=== PATIENT | female | born 1980 | race Caucasian/White ===

== ENCOUNTER 2016-11-13 22:17 | Emergency (ER) | payer OTHER ==
[~2016-11-13] VITALS: Ht 177.8 cm; Wt 89.0 kg
[2016-11-13 22:19] VITALS: BP 139/86; PULSE 77; RESP 16; TEMP 98; O2SAT 98
[2016-11-13] MEDS ORDERED: SODIUM CHLOR 0.9% 1000 ML INJ 1,000 ML IV ONE (23:05)
[2016-11-13] MEDS ORDERED: SODIUM CHLORIDE 0.9% FLUSH 10 ML FLUSH IVF PRN (23:15)
[2016-11-13 23:27] VITALS: BP 140/85; PULSE 75; RESP 18; O2SAT 100
--- NOTE | 2016-11-13 23:32 | PD ---
HPI Chief Complaint: Syncope/Near-Syncope Time Seen by Provider: 00:06 Travel History International Travel<30 days: No Contact w/Intl Traveler<30days: No Traveled to known affect area: No History of Present Illness HPI Patient 36-year-old female presents emergency primary for evaluation of headache dizziness and feeling like she's been a pass out. Patient states his been going on for a long time but is been gradually getting worse over the past few days. She has been working up as an outpatient and her physicians have recommended that she have an MRI for in her urine imbalance as well as brain function. The patient states that she is not been able to afford the co-pay on this as of yet. Patient states that she feels as though the room is spinning more than she's feel like she could pass out. Denies any chest pain shortness of breath palpitations. She states she does have some mild numbness and tingling in her hands from time to time. She denies any focalized weakness or visual difficulties. PFSH Past Medical History Medical History: Denies Significant Hx Past Surgical History Surgical History: No Previous Surgery Family History Narrative Family History Noncontributory no history of multiple sclerosis. Social History Tobacco Use: No Allergies-Medications (Allergen,Severity, Reaction): Coded Allergies: Penicillin (Verified Adverse Reaction, Intermediate, 11/13/16) Reported Meds & Prescriptions Reported Meds & Active Scripts Active No Active Prescriptions or Reported Medications Review of Systems Except as stated in HPI: all other systems reviewed are Neg Physical Exam Narrative GENERAL: Well-developed well-nourished no apparent distress SKIN: Focused skin assessment warm/dry. HEAD: Atraumatic. Normocephalic. EYES: Pupils equal and round. No scleral icterus. No injection or drainage. No papilledema bilaterally. ENT: No nasal bleeding or discharge. Mucous membranes pink and moist. NECK: Trachea midline. No JVD. CARDIOVASCULAR: Regular rate and rhythm. No murmur appreciated. Thus bilateral equal pulses in all 4 extremity's. RESPIRATORY: No accessory muscle use. Clear to auscultation. Breath sounds equal bilaterally. GASTROINTESTINAL: Abdomen soft, non-tender, nondistended. Hepatic and splenic margins not palpable. MUSCULOSKELETAL: No obvious deformities. No clubbing. No cyanosis. No edema. NEUROLOGICAL: Awake and alert. Cranial nerves II through XII are grossly intact and nonfocal, 5 out of 5 strength in all 4 extremities, sensation grossly intact. Cerebellar testing negative, and relates that even narrow based gait. PSYCHIATRIC: Appropriate mood and affect; insight and judgment normal. Data Data Last Documented VS Vital Signs Date Time Temp Pulse Resp B/P Pulse Ox O2 Delivery O2 Flow Rate FiO2 11/14/16 00:23 80 17 145/90 99 Room Air 11/13/16 22:19 98.0 Orders Electrocardiogram (11/13/16 23:05) Basic Metabolic Panel (Bmp) (11/13/16 23:05) Ed Urine Pregnancytest Poc (11/13/16 23:05) Comprehensive Metabolic Panel (11/13/16 23:05) Urinalysis - C+S If Indicated (11/13/16 23:05) Ecg Monitoring (11/13/16 23:05) Iv Access Insert/Monitor (11/13/16 23:05) Oximetry (11/13/16 23:05) Sodium Chloride 0.9% Flush (Ns Flush) (11/13/16 23:15) Sodium Chlor 0.9% 1000 Ml Inj (Ns 1000 M (11/13/16 23:05) Complete Blood Count With Diff (11/14/16 00:00) Prochlorperazine Inj (Compazine Inj) (11/14/16 00:15) Diphenhydramine Inj (Benadryl Inj) (11/14/16 00:15) Labs Laboratory Tests Test 11/13/16 11/13/16 23:20 23:30 White Blood Count 8.6 TH/MM3 Red Blood Count 4.94 MIL/MM3 Hemoglobin 13.9 GM/DL Hematocrit 41.6 % Mean Corpuscular Volume 84.2 FL Mean Corpuscular Hemoglobin 28.2 PG Mean Corpuscular Hemoglobin 33.4 % Concent Red Cell Distribution Width 12.7 % Platelet Count 257 TH/MM3 Mean Platelet Volume 7.3 FL Neutrophils (%) (Auto) 54.3 % Lymphocytes (%) (Auto) 34.3 % Monocytes (%) (Auto) 7.3 % Eosinophils (%) (Auto) 3.8 % Basophils (%) (Auto) 0.3 % Neutrophils # (Auto) 4.7 TH/MM3 Lymphocytes # (Auto) 2.9 TH/MM3 Monocytes # (Auto) 0.6 TH/MM3 Eosinophils # (Auto) 0.3 TH/MM3 Basophils # (Auto) 0.0 TH/MM3 CBC Comment DIFF FINAL Differential Comment Sodium Level 140 MEQ/L Potassium Level 3.8 MEQ/L Chloride Level 106 MEQ/L Carbon Dioxide Level 28.0 MEQ/L Anion Gap 6 MEQ/L Blood Urea Nitrogen 10 MG/DL Creatinine 0.96 MG/DL Estimat Glomerular Filtration 65 ML/MIN Rate Random Glucose 73 MG/DL Calcium Level 9.0 MG/DL Total Bilirubin 0.2 MG/DL Aspartate Amino Transf 16 U/L (AST/SGOT) Alanine Aminotransferase 21 U/L (ALT/SGPT) Alkaline Phosphatase 72 U/L Total Protein 7.0 GM/DL Albumin 3.6 GM/DL Urine Color YELLOW Urine Turbidity CLEAR Urine pH 7.0 Urine Specific Sayre 1.016 Urine Protein NEG mg/dL Urine Glucose (UA) NEG mg/dL Urine Ketones NEG mg/dL Urine Occult Blood NEG Urine Nitrite NEG Urine Bilirubin NEG Urine Urobilinogen LESS THAN 2.0 MG/DL Urine Leukocyte Esterase NEG Urine RBC 1 /hpf Urine WBC LESS THAN 1 /hpf Urine Squamous Epithelial <1 /hpf Cells Urine Mucus FEW /lpf Microscopic Urinalysis Comment CULT NOT INDICATED MDM Medical Decision Making Medical Screen Exam Complete: Yes Emergency Medical Condition: Yes Interpretation(s) EKG shows normal sinus rhythm with normal axis normal R-wave progression. No concerning ST T changes. Intervals within normal limits. This normal EKG. Differential Diagnosis MS, vertigo, cardiogenic syncope unlikely, arrhythmia unlikely, headache, migraine, Narrative Course Patient was roomed in the emergency department, she appears well and in no apparent distress. She responded quite well to medications and stated that she would like to go home to follow-up with her primary care physician. Her initial workup including an EKG and a CBC showed no abnormalities and no anemia. The patient is nonfocal currently. She was encouraged to try to get her MRI done his MS does remain on the differential diagnosis. There is no indication for emergent imaging at this time. She is stable for discharge at this time. Diagnosis Primary Impression: Headache Qualified Code: R51 - Nonintractable headache, unspecified chronicity pattern , unspecified headache type Scripts No Active Prescriptions or Reported Meds Disposition: DISCHARGE HOME Condition: Stable Davion Jason MD Nov 13, 2016 23:32
[2016-11-14 00:01] LABS: BLOOD, URINE NEG (NEG); COMMENT (UR) CULT NOT INDICATED; CULTURE IF INDICATED CULT NOT INDICATED; GLUCOSE,URINE NEG (NEG); KETONE, URINE NEG (NEG); MUCUS URINE FEW /lpf (OCC); NITRITE,URINE NEG (NEG); SQUAMOUS EPITHELIAL CELL URINE <1 /hpf (0-5); URINE COLOR YELLOW (YELLW/STRAW)
[2016-11-14 00:03] LABS: ALT (GPT) 21 U/L (10-53); ANION GAP 6 MEQ/L (5-15); AST (GOT) 16 U/L (15-37); BLOOD UREA NITROGEN 10 MG/DL (7-18); CHLORIDE 106 MEQ/L (98-107); GLOMERULAR FILTRATION RATE 65 ML/MIN (>89); POTASSIUM 3.8 MEQ/L (3.5-5.1); SODIUM (NA) 140 MEQ/L (136-145)
[2016-11-14 00:06] LABS: ALKALINE PHOSPHATASE 72 U/L (45-117); TOTAL BILIRUBIN ADULT 0.2 MG/DL (0.2-1.0)
[2016-11-14] MEDS ORDERED: diphenhydrAMINE HCL 50 MG/ML VIAL IV PUSH ONE (00:15)
[2016-11-14] MEDS ORDERED: PROCHLORPERAZINE INJ 10 MG/2 ML VIAL IV PUSH ONE (00:15)
[2016-11-14 00:23] VITALS: BP 145/90; PULSE 80; RESP 17; O2SAT 99
[2016-11-14 00:33] LABS: AUTOMATED NEUTROPHIL # 4.7 TH/MM3 (1.8-7.7); BASOPHIL % 0.3 % (0.0-2.0); EOSINOPHIL # 0.3 TH/MM3 (0-0.4); EOSINOPHIL % 3.8 % (0.0-4.0); HEMATOCRIT 41.6 % (35.0-46.0); HEMO FLAGS DIFF FINAL; LYMPH % 34.3 % (9.0-44.0); LYMPHOCYTE # 2.9 TH/MM3 (1.0-4.8); MEAN CELL VOLUME 84.2 FL (80.0-100.0); MEAN CORPUSCULAR HEMOGLOBIN 28.2 PG (27.0-34.0); MEAN CORPUSCULAR HGB CONC 33.4 % (32.0-36.0); MONO % 7.3 % (0.0-8.0); NEUT % 54.3 % (16.0-70.0); PLATELET COUNT 257 TH/MM3 (150-450); RED BLOOD COUNT 4.94 MIL/MM3 (4.00-5.30); RED CELL DISTRIBUTION WIDTH 12.7 % (11.6-17.2); WHITE BLOOD COUNT 8.6 TH/MM3 (4.0-11.0)
--- NOTE | 2016-11-14 20:19 | EKG ---
Date Performed: 11/13/2016 Time Performed: 23:14:05 PTAGE: 36 years EKG: Sinus rhythm NORMAL ECG NO PREVIOUS TRACING DOCTOR: Luz Maria Daugherty Interpretating Date/Time 11/14/2016 20:18:24
== END 2016-11-14 01:26 | disposition home or self-care (01) ==
LOC: NEPD 22:17
DX: R51 Headache (principal)
CPT/HCPCS: 80053; 81001; 84703; 85025; 93005; 96374; 96375; 99284; J0780; J1200; J7030